=== PATIENT | male | born 1970 | race Caucasian/White ===

== ENCOUNTER → 2017-01-11 | Outpatient (CLI) | payer OTHER ==
--- NOTE | 2017-01-12 08:46 | KCIC ---
INDICATION: Lumbar radiculopathy and stenosis. Chronic back pain with lower extremity numbness. TECHNIQUE: Sagittal T1, sagittal T2, sagittal STIR, axial T1, and axial T2 sequences are provided. Comparison is from September 12, 2013. FINDINGS: There is no malalignment. There is no marrow edema. There is an L1 hemangioma. There is no worrisome marrow lesion. A few Schmorl's nodes throughout the endplates are noted. There is disc desiccation and narrowing of disc height at L4-L5, increased from prior. The conus medullaris is normal in signal intensity and in position. Subcutaneous edema is noted. The numbering system assumes 5 lumbar type vertebral bodies. Findings by individual level are as follows: L1-L2, L2-L3: There is no canal or foraminal compromise. L3-L4: There is minimal facet hypertrophy without canal or foraminal compromise. L4-L5: There is a mild disc osteophyte complex and facet hypertrophy with [id number] left foraminal narrowing. There is no canal stenosis, midline AP diameter of the thecal sac is 11 mm. There is slight left lateral recess narrowing but no displacement of the nonexiting nerve root. L5-S1: There is facet hypertrophy without canal or foraminal compromise. IMPRESSION: Mild degenerative changes in the lumbar spine are greatest at L4-L5. Findings are minimally increased from 2014. Findings do not result in any high-grade canal stenosis. Electronically signed by: Seamus Freitas MD (01/12/2017 8:43 AM) [id number]
== END | disposition home or self-care (01) ==
LOC: KCIC MRI 17:45
PROVIDERS: ATTEND Anesthesiology
DX: M51.16 Intervertebral disc disorders with radiculopathy, lumbar region (principal); M48.06 Spinal stenosis, lumbar region; G89.29 Other chronic pain; R20.0 Anesthesia of skin
CPT/HCPCS: 72148